=== PATIENT | male | born 1995 | race Two or more races ===

== ENCOUNTER 2016-12-12 11:52 | Emergency (ER) | payer OTHER, MEDICAID ==
[~2016-12-12] VITALS: Ht 172.7 cm; Wt 79.8 kg
--- NOTE | 2016-12-12 11:54 | NUR ---
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 Placed on monitor. VSS. Awaiting md order.
--- NOTE | 2016-12-12 12:24 | NUR ---
AT BEDSIDE FOR EVAL
[2016-12-12 12:38] VITALS: BP 125/68
--- NOTE | 2016-12-12 12:40 | NUR ---
Patient discharged to [facility] in stable condition. Written and verbal after care instructions given. Patient AND [facility] verbalized understanding of instruction.
== END 2016-12-12 12:43 ==
LOC: ER 12:00
DX: S01.81XA Laceration without foreign body of other part of head, initial encounter (principal); S00.83XA Contusion of other part of head, initial encounter; S09.90XA Unspecified injury of head, initial encounter; F32.9 Major depressive disorder, single episode, unspecified; F20.9 Schizophrenia, unspecified; W22.01XA Walked into wall, initial encounter; Y93.89 Activity, other specified; Y92.240 Courthouse as the place of occurrence of the external cause; Y99.8 Other external cause status
CPT/HCPCS: 12011; 99283; A4606; A6402; Z7610